=== PATIENT | male | born 1960 | race Caucasian/White ===

== ENCOUNTER 2020-11-17 10:38 | Outpatient (CLI) | payer OTHER, SELFPAY ==
--- NOTE | 2020-11-17 10:52 | XR_ITS ---
WS: [id number] LUMBAR SPINE: 3 VIEWS TECHNIQUE: AP, lateral and L5-S1 spot. HISTORY: LOW BACK PAIN COMPARISON: None available. Posterior lumbar alignment is normal. Disc space narrowing and desiccation at L4-5 and L5-S1. At L5-S 1 there is an anterior bridging osteophyte between L5 and S1. Moderate facet joint hypertrophy and ar thropathy at L4-5 and L5-S1. On the lateral projection there is an anterior compression fracture invo lving T12 by 15%. This fracture was present on prior examination from 2017. There is partial sacralization of L5 on the LEFT. SI joints are symmetric bilaterally. No soft tissue abnormalities. Stable T12 compression fracture by 15 %. XR/XR lumbar spine 2-3V* [id number] IMPRESSION: 1. Advanced degenerative disc disease at L5-S1 with moderate facet joint arthr itis at L4-5 and L5-S1. 2. Partial sacralization on the LEFT of L5. 3. Stable T12 compression fracture 15 %.
--- NOTE | 2020-11-17 10:52 | XR_ITS ---
WS: [id number] LEFT KNEE: 2 VIEW(S) TECHNIQUE: AP and lateral. HISTORY: L KNEE PAIN COMPARISON: None available. No fracture or dislocation. Very minimal narrowing of the medial compartment with small joint line osteophytes. Small osteophyte from the superior patella. No joint effusion. No soft tissue abnormality. XR/XR knee LT 1-2V [id number] IMPRESSION: Mild medial compartment arthritis.
== END 2020-11-17 10:39 | disposition home or self-care (01) ==
LOC: RAD 10:46
PROVIDERS: PCP Family Medicine; Visit Provider Dermatology
DX: M54.5 Low back pain (principal); M51.37 Other intervertebral disc degeneration, lumbosacral region; Q76.49 Other congenital malformations of spine, not associated with scoliosis; S22.080A Wedge compression fracture of T11-T12 vertebra, initial encounter for closed fracture; X58.XXXA Exposure to other specified factors, initial encounter; M13.862 Other specified arthritis, left knee
CPT/HCPCS: 72100; 73560

== ENCOUNTER 2021-05-30 14:56 | Emergency (ER) | payer BC, SELFPAY ==
[2021-05-30 15:07] VITALS: BP 100/67; PULSE 102; RESP 22; TEMP 37.3; O2SAT 95; BMI 40.6
--- NOTE | 2021-05-30 15:14 | ECG_ITS ---
[facility] Test Date: 2021-05-30 Pat Name: Nathanael Lucio Department: Room: Gender: Male Car Refinisher: : 1960 Requested By: Sade Recinos Order Number: [id number] Nancy MD: Nba Melendrez M.D. Measurements Intervals [place] Rate: 102 P: 46 VA: 165 QRS: -51 QRSD: 89 T: 64 QT: 305 QTc: 397 Interpretive Statements SINUS TACHYCARDIA POSSIBLE RIGHT VENTRICULAR CONDUCTION DELAY [RSR (QR) IN V1/V2] LEFT ANTERIOR FASCICULAR BLOCK [QRS AXIS <= -45, QR IN I, RS IN II] No previous ECG available for comparison Electronically Signed On 05-30-2021 16:31:41 CDT by Nba Melendrez M.D. [email or web address]
--- NOTE | 2021-05-30 15:22 | W.ED.ARRPALP ---
HPI - Arrhythmia/Palpitations General: Chief Complaint: Dizziness Stated Complaint: irregular HB Time Seen by Provider: 05/30/21 15:14 Source: patient and family Mode of arrival: wheelchair Limitations: no limitations History of Present Illness: HPI narrative: Patient is a nice 61-year-old male who presents to ED today with a complaint of heart racing/feeling irregular, sweatiness, and some visual changes. Patient was taken to a room and within minutes I entered the room to assess the patient. Patient had already decided he wanted to leave AMA stating he felt better and RN was already on her way to get AMA papers. Patient tells me that he missed his dose of atenolol yesterday so when he became symptomatic he took the atenolol as well as 2 nitroglycerin tablets. He states he feels like all of the medication hit him at once contributing to the visual changes and sweatiness. He states upon arrival he no longer feels like his heart is racing. He denies palpitations. He is not having active chest pain. MD complaint: rapid heart beat, heart racing and irregular heart beat Onset (ago): hour(s) Duration: now resolved Severity: moderate Context: occurred during rest Review of Systems General: Reports: Other (not completed apart from HPI; pt had already decided to leave AMA) Physical Exam Const: NUTRITIONAL APPEARANCE: obese morbidly obese OTHER: slightly diaphoretic Resp: COMMON NORMALS: normal respiratory effort Cardio: COMMON NORMALS: regular rhythm RATE: tachycardic (mild) RHYTHM: regular rhythm Course Vital Signs: Vital signs: Vital Signs Temperature 99.1 F 05/30/21 15:07 Pulse Rate 102 H 05/30/21 15:07 Respiratory Rate 22 H 05/30/21 15:07 Blood Pressure 100/67 05/30/21 15:07 Pulse Oximetry 95 05/30/21 15:07 MDM - Arrhythmia/Palpitations MDM Narrative: Medical decision making narrative: Upon me entering the room the patient had already decided to leave AMA stating that he felt better. Based on his symptoms and history I strongly urged him to stay for evaluation. He was able to receive an EKG in triage which I reviewed with the patient. I stressed to him that a screening EKG can miss significant pathology and that patient could still be experiencing cardiac ischemia. Explained to him certainly there are other etiologies that could explain palpitations, elevated heart rate, diaphoresis and some of these could be potentially life-threatening. Again patient verbalizes understanding and states he feels better and wants to go home. He states he will return if symptoms return. AMA form filled out. EKG Data^: EKG 1: EKG interpretation date: 05/30/21 EKG interpretation time: 15:04 Interpretation: Sinus tachycardia Rate [address] elevation or depression changes noted Discharge Plan Discharge Patient Disposition: Left Against Medical Advice Clinical Impression: Tachycardia Referrals: Diane Beauchamp MD [Primary Care Provider] - Coding Level of Care Code ED Record Systems Analyst for Chg Fwemily
--- NOTE | 2021-05-30 15:22 | PC.NURSE ---
Patient got to room and immediately wanted to leave, Jorje at bedside and given EKG, patient continues to refuse care and signs AMA and walks out of ED.
== END 2021-05-30 15:26 | disposition left against medical advice (07) ==
PROVIDERS: Emergency Provider Physician Assistant; PCP Family Medicine
DX: R00.0 Tachycardia, unspecified (principal); Z53.21 Procedure and treatment not carried out due to patient leaving prior to being seen by health care provider
CPT/HCPCS: 93005; 99282

== ENCOUNTER 2022-01-27 15:00 | Outpatient (CLI) | payer BC, SELFPAY ==
--- NOTE | 2022-01-27 15:49 | XR_ITS ---
WS: [id number] Chest 2 views, 01/27/2022 Clinical Data: CHEST PAIN/ COUGH Comparison: PA and lateral chest, 03/21/2017. Findings: No nodules, masses or effusions are seen. The heart is normal. The pulmonary vascularity is not increased. No pneumonia or pneumothorax is seen. There is patchy atelectasis over the surface of the right and left diaphragms. The right diaphragm is elevated. XR/XR chest 2V* [id number] Impression: Bibasilar patchy atelectasis and chronic elevation of the right diaphragm.
== END 2022-01-27 15:01 | disposition home or self-care (01) ==
PROVIDERS: PCP Family Medicine; Visit Provider Family Medicine
DX: R07.9 Chest pain, unspecified (principal); R05.9 Cough, unspecified; J98.11 Atelectasis
CPT/HCPCS: 71046